=== PATIENT | female | born 1970 | race Caucasian/White ===

== ENCOUNTER → 2017-04-29 | Outpatient (CLI) | payer OTHER ==
[~2017-04-29] MED LIST: CYMBALTA60 MG PO; DHEA 10 MG TAB1 EACH PO; DOXEPIN 25 MG C25 M1 PO; EFFEXOR75 MG PO; GLUCOSAMINE &1 EAC1 PO; HYDROCODON-ACE1 EAC1 PO; LEVOCETIRIZINE D5 MG PO; MULTIVITAMINS1 EAC7 PO; NEURONTIN 300300 M1 PO; NORCO 5-325 TA1 EACH PO; PREMARIN1.25 MG PO; RANITIDINE HCL300 M1 PO; SINGULAIR 10 MG10 MG PO; VITAMIN B-12250 MCG PO; ZINC CHELATE15 MG PO; ZOLOFT100 MG PO
== END | disposition home or self-care (01) ==
LOC: RAD 10:43
DX: M11.262 Other chondrocalcinosis, left knee (principal); M22.42 Chondromalacia patellae, left knee

== ENCOUNTER 2019-04-16 21:11 | Emergency (ER) | payer OTHER ==
[~2019-04-16] VITALS: Ht 170.2 cm; Wt 81.7 kg
[2019-04-16 21:12] VITALS: BP 132/92
[2019-04-16] MEDS ORDERED: IBUPROFEN 800800 M1 PO (22:16)
== END 2019-04-16 22:35 | disposition home or self-care (01) ==
LOC: ER 21:11
DX: S22.31XA Fracture of one rib, right side, initial encounter for closed fracture (principal); S40.011A Contusion of right shoulder, initial encounter; S50.01XA Contusion of right elbow, initial encounter; S60.211A Contusion of right wrist, initial encounter; G43.909 Migraine, unspecified, not intractable, without status migrainosus; F17.210 Nicotine dependence, cigarettes, uncomplicated; Z98.890 Other specified postprocedural states; Z90.710 Acquired absence of both cervix and uterus; Z91.041 Radiographic dye allergy status; W01.0XXA Fall on same level from slipping, tripping and stumbling without subsequent striking against object, initial encounter; Y93.89 Activity, other specified; Y92.89 Other specified places as the place of occurrence of the external cause; Y99.8 Other external cause status

== ENCOUNTER 2019-07-18 12:29 | Emergency (ER) | payer OTHER ==
[~2019-07-18] VITALS: Ht 170.2 cm; Wt 84.8 kg
[~2019-07-18 12:29] MED LIST changes: +IBUPROFEN 800800 M1 PO
[2019-07-18 14:19] LABS: ABSOLUTE NEUTROPHILS 8.2 thou/uL (1.4-8.2); BASOPHILS 0.6 % (0.0-2.0); EOSINOPHILS 0.1 % (0.0-3.0); HEMATOCRIT 42.9 % (37.0-47.0); HEMOGLOBIN 14.4 gm/dL (12.0-15.0); LYMPHOCYTES 17.3 % (24.0-44.0); MCHC 33.5 g/dL (28.0-37.0); MCV 89.6 fL (80.0-100.0); MONOCYTES 2.9 % (1.0-8.0); PLATELET COUNT 249 thou/uL (150-400); POLYS 79.1 % (36.0-66.0); RBC 4.79 mil/uL (4.20-5.00); RDW 13.4 % (10.5-14.5); WBC 10.4 thou/uL (4.0-11.0)
[2019-07-18 14:26] LABS: CALCIUM 10.3 mg/dL (8.5-10.1); POTASSIUM 3.3 mmol/L (3.5-5.1)
[2019-07-18 14:33] LABS: ALBUMIN 4.1 g/dL (3.4-5.0); TOTAL BILIRUBIN 0.6 mg/dL (<0.1-1.0)
[2019-07-18] MEDS ORDERED: FENTANYL1 EACH TOP (16:21)
[2019-07-18] MEDS ORDERED: NORCO 5-325 TA1 EAC1 PO (16:22)
[2019-07-18 16:23] LABS: URINE BILIRUBIN NEGATIVE (Negative); URINE BLOOD 1+ (Negative); URINE CLARITY SL CLOUDY; URINE COLOR YELLOW; URINE GLUCOSE-RANDOM* NEGATIVE (Negative); URINE KETONES 3+ (Negative); URINE LEUKOCYTES-REFLEX NEGATIVE (Negative); URINE NITRITE-REFLEX NEGATIVE (Negative); URINE PROTEIN (DIPSTICK) NEGATIVE (Negative); URINE SPECIFIC GRAVITY 1.015 (1.005-1.035); URINE UROBILINOGEN 0.2 E.U./dl (0.2-1.0)
[2019-07-18 16:25] LABS: URINE REDUCING SUBSTANCE NEGATIVE
[2019-07-18 16:37] LABS: AMORPHOUS PHOSPHATES Many /LPF (None Seen); BACTERIA-REFLEX 1-9 Few /HPF (None Seen); CASTS None Seen /LPF (None Seen); SQUAMOUS >10 Many /LPF (0-3); URINE RBC 0-2 Rare /HPF (0-2); URINE WBC-REFLEX None Seen /HPF (0-5)
[2019-07-18] MEDS ORDERED: PROAIR HFA8.5 GM INH (16:44)
[2019-07-18] MEDS ORDERED: ZOFRAN ODT4 MG PO (16:44)
[2019-07-18 16:51] VITALS: BP 134/65
== END 2019-07-18 16:52 | disposition home or self-care (01) ==
LOC: ER 12:29
PROVIDERS: Physician Assistant
DX: B34.9 Viral infection, unspecified (principal); J06.9 Acute upper respiratory infection, unspecified; E86.0 Dehydration; G43.909 Migraine, unspecified, not intractable, without status migrainosus; Z79.899 Other long term (current) drug therapy

== ENCOUNTER 2020-03-07 11:48 | Emergency (ER) | payer OTHER ==
[~2020-03-07] VITALS: Ht 170.2 cm; Wt 81.7 kg
[~2020-03-07 11:48] MED LIST changes: +FENTANYL1 EACH TOP; +NORCO 5-325 TA1 EAC1 PO; +PROAIR HFA8.5 GM INH; +ZOFRAN ODT4 MG PO
[2020-03-07] MEDS ORDERED: ALPRAZOLAM 0.0.25 M1 PO (12:37)
[2020-03-07] MEDS ORDERED: HYDROCODON-ACE1 EAC7 PO (12:37)
[2020-03-07] MEDS ORDERED: HYDROCHLOROTHIA25 M2 PO (12:38)
[2020-03-07] MEDS ORDERED: VISTARIL 25 MG25 M1 PO (12:39)
[2020-03-07 12:40] LABS: ABSOLUTE NEUTROPHILS 7.3 thou/uL (1.4-8.2); BASOPHILS 0.3 % (0.0-2.0); EOSINOPHILS 0.1 % (0.0-3.0); HEMATOCRIT 43.1 % (37.0-47.0); HEMOGLOBIN 14.4 gm/dL (12.0-15.0); LYMPHOCYTES 19.9 % (24.0-44.0); MCH 29.9 pg (26.0-34.0); MCHC 33.4 g/dL (28.0-37.0); MCV 89.5 fL (80.0-100.0); MONOCYTES 3.4 % (1.0-8.0); PLATELET COUNT 276 thou/uL (150-400); POLYS 76.3 % (36.0-66.0); RBC 4.82 mil/uL (4.20-5.00); RDW 13.4 % (10.5-14.5); WBC 9.6 thou/uL (4.0-11.0)
[2020-03-07 12:49] LABS: CALCIUM 9.9 mg/dL (8.5-10.1); POTASSIUM 3.2 mmol/L (3.5-5.1)
[2020-03-07 12:55] LABS: ALBUMIN 4.2 g/dL (3.4-5.0); DIRECT BILIRUBIN 0.2 mg/dL (<0.1-0.2); TOTAL BILIRUBIN 0.7 mg/dL (0.2-1.0); TOTAL PROTEIN 8.1 g/dL (6.4-8.2)
[2020-03-07] MEDS ORDERED: LEVOTHYROXINE50 MCG PO (13:29)
[2020-03-07] MEDS ORDERED: NEURONTIN 300M300 M2 PO (13:29)
[2020-03-07] MEDS ORDERED: NORVASC5 MG PO (13:30)
[2020-03-07] MEDS ORDERED: ROSUVASTATIN CA10 MG PO (13:30)
[2020-03-07] MEDS ORDERED: PROTONIX40 M2 PO (13:30)
[2020-03-07 13:31] LABS: URINE BILIRUBIN 1+ (Negative); URINE BLOOD 2+ (Negative); URINE CLARITY CLEAR; URINE COLOR YELLOW; URINE GLUCOSE-RANDOM* NEGATIVE (Negative); URINE KETONES 1+ (Negative); URINE LEUKOCYTES-REFLEX NEGATIVE (Negative); URINE NITRITE-REFLEX NEGATIVE (Negative); URINE PROTEIN (DIPSTICK) 1+ (Negative); URINE SPECIFIC GRAVITY 1.025 (1.005-1.035); URINE UROBILINOGEN 0.2 E.U./dl (0.2-1.0)
[2020-03-07 13:40] LABS: CASTS None Seen /LPF (None Seen); MUCUS 4-6 Moderate strn/LPF (None Seen); SQUAMOUS >10 Many /LPF (0-3); URINE RBC 3-10 Few /HPF (0-2); URINE WBC-REFLEX 0-5 Rare /HPF (0-5)
[2020-03-07 13:41] LABS: BACTERIA-REFLEX 1-9 Few /HPF (None Seen); CRYSTALS None Seen /LPF (None Seen)
[2020-03-07 14:02] VITALS: BP 123/72
--- NOTE | 2020-03-07 14:23 | EKG ---
[facility] [place] [address] ELECTROCARDIOGRAM REPORT Name: HARPREET HOUSERCameron Marie Room #: [facility]#: [id number] Admission: 03/07/20 Attend Phys: Discharge: Date of : 66 Report #: [id number] THIS REPORT FOR: cc: FAM - Family physician unknown FAM - Family physician unknown Cory Guerra MD [facility] ~ THIS REPORT FOR: //name// [facility] ED Test Date: 2020-03-07 Test Time: 13:05:34 Pat Name: FELIPE HOUSER Department: Room: Gender: F Overhauler: esheets : 1970 Requested By: Afia Mandel Order Number: [id number] MD: Cory Guerar Measurements Intervals [place] Rate: 58 P: 38 IA: 154 QRS: -1 QRSD: 104 T: 32 QT: 462 QTc: 454 Interpretive Statements Sinus rhythm Baseline wander in lead(s) III,V6 Compared to ECG 09/01/2002 03:08:17 No significant changes Electronically Signed On 03-07-2020 14:23:15 CDT by Cory Guerra [email or web address] <ELECTRONICALLY SIGNED> By: Cory Guerra MD, FACC 03/07/20 1423 1305 04 Cory Guerra MD, FAC /EPI
[2020-03-07] MEDS ORDERED: ZOFRAN ODT4 MG PO (15:49)
== END 2020-03-07 16:15 | disposition home or self-care (01) ==
LOC: ER 11:48
PROVIDERS: Emergency Medicine
DX: E87.2 Acidosis (principal); R11.2 Nausea with vomiting, unspecified; R06.00 Dyspnea, unspecified; R05 Cough; R19.7 Diarrhea, unspecified; Z20.828 Contact with and (suspected) exposure to other viral communicable diseases; G43.909 Migraine, unspecified, not intractable, without status migrainosus; F17.210 Nicotine dependence, cigarettes, uncomplicated; Z90.711 Acquired absence of uterus with remaining cervical stump; Z98.890 Other specified postprocedural states; Z79.899 Other long term (current) drug therapy; Z91.041 Radiographic dye allergy status; Z91.048 Other nonmedicinal substance allergy status

== ENCOUNTER 2020-06-05 17:36 | Inpatient (IN) | payer OTHER ==
[~2020-06-05] VITALS: Ht 170.2 cm; Wt 84.5 kg
[~2020-06-05 17:36] MED LIST changes: +ALPRAZOLAM 0.0.25 M1 PO; +HYDROCHLOROTHIA25 M2 PO; +HYDROCODON-ACE1 EAC7 PO; +LEVOTHYROXINE50 MCG PO; +NEURONTIN 300M300 M2 PO; +NORVASC5 MG PO; +PROTONIX40 M2 PO; +ROSUVASTATIN CA10 MG PO; +VISTARIL 25 MG25 M1 PO
[2020-06-05 17:39] VITALS: BP 152/95
[2020-06-05 18:21] LABS: ABSOLUTE NEUTROPHILS 10.6 thou/uL (1.4-8.2); BASOPHILS 0.5 % (0.0-2.0); EOSINOPHILS 0.1 % (0.0-3.0); HEMATOCRIT 42.7 % (37.0-47.0); HEMOGLOBIN 14.1 gm/dL (12.0-15.0); LYMPHOCYTES 11.5 % (24.0-44.0); MCH 29.8 pg (26.0-34.0); MCHC 33.2 g/dL (28.0-37.0); MCV 89.9 fL (80.0-100.0); PLATELET COUNT 283 thou/uL (150-400); POLYS 85.9 % (36.0-66.0); RBC 4.75 mil/uL (4.20-5.00); RDW 13.5 % (10.5-14.5); WBC 12.4 thou/uL (4.0-11.0)
[2020-06-05] MEDS ORDERED: REXULTI2 MG PO (18:22)
[2020-06-05 18:30] LABS: CALCIUM 10.2 mg/dL (8.5-10.1); CREATININE 0.9 mg/dL (0.6-1.0); POTASSIUM 3.1 mmol/L (3.5-5.1)
[2020-06-05 18:36] LABS: ALBUMIN 4.4 g/dL (3.4-5.0); TOTAL BILIRUBIN 0.3 mg/dL (0.2-1.0); TOTAL PROTEIN 8.1 g/dL (6.4-8.2)
[2020-06-05 19:45] LABS: URINE BILIRUBIN NEGATIVE (Negative); URINE BLOOD 1+ (Negative); URINE CLARITY CLEAR; URINE COLOR YELLOW; URINE GLUCOSE-RANDOM* NEGATIVE (Negative); URINE KETONES TRACE (Negative); URINE LEUKOCYTES-REFLEX NEGATIVE (Negative); URINE NITRITE-REFLEX NEGATIVE (Negative); URINE PROTEIN (DIPSTICK) TRACE (Negative); URINE UROBILINOGEN 0.2 E.U./dl (0.2-1.0)
[2020-06-05 20:06] LABS: MUCUS >6 Heavy strn/LPF (None Seen); SQUAMOUS >10 Many /LPF (0-3)
[2020-06-05 20:07] LABS: CASTS None Seen /LPF (None Seen); URINE WBC-REFLEX 0-5 Rare /HPF (0-5)
[2020-06-05 20:08] LABS: BACTERIA-REFLEX None Seen /HPF (None Seen); CRYSTALS None Seen /LPF (None Seen); URINE RBC 3-10 Few /HPF (0-2)
[2020-06-05 23:18] VITALS: BP 138/75
[2020-06-05 23:29] VITALS: BP 138/75
[2020-06-05 23:46] VITALS: BP 153/90
[2020-06-06 03:10] VITALS: BP 122/71
[2020-06-06 05:29] LABS: HEMOGLOBIN 12.8 gm/dL (12.0-15.0); MCH 29.6 pg (26.0-34.0); MCHC 32.9 g/dL (28.0-37.0); RBC 4.34 mil/uL (4.20-5.00); RDW 13.4 % (10.5-14.5); WBC 12.3 thou/uL (4.0-11.0)
[2020-06-06 05:38] LABS: CALCIUM 9.1 mg/dL (8.5-10.1); CREATININE 0.8 mg/dL (0.6-1.0); POTASSIUM 3.1 mmol/L (3.5-5.1)
--- NOTE | 2020-06-06 06:59 | NUR ---
PT ARRIVED VIA ER ON CART. COVID PCR WAS NEGATIVE, ALL APPROPRIATE PARTIES NOTIFIED. PT STILL HAVING N/V AND GASTRIC PAIN. IV PAIN & NAUSEA MEDICATION GIVEN WITH GOOD RESULTS. IVF GTT AT 125. ADMISSION COMPLETED, MED REC DONE, AND CARE PLAN IN PLACE.
[2020-06-06 07:25] VITALS: BP 125/97
--- NOTE | 2020-06-06 14:30 | NUR ---
PATIENT TRANSFERED TO AT THIS TIME. SHE IS COVID NEGATIVE AND NO HAPPY BEING UP ON THIS FLOOR. REPORT CALLED. WILL CONT WITH PLAN OF CARE.
[2020-06-06 15:00] VITALS: BP 142/74
[2020-06-06 15:20] VITALS: BP 142/74
[2020-06-06 19:38] VITALS: BP 134/69
[2020-06-06 21:57] VITALS: BP 134/69
--- NOTE | 2020-06-07 03:31 | NUR ---
PT AOX4. PT REPORTS 8/10 PAIN IN ABDOMEN. PT RECEIVING PRN IV FENTANYL Q4HR. PT REPORTS SOB WITH EXERTION WHILE ON ROOM AIR, OXYGEN OFFERED, PT REFUSING O2 SUPPLEMENTATION, NASAL CANNULA IN ROOM AVAILABLE FOR USE. PT AMBULATING INDEPENDENTLY IN ROOM AND TO BATHROOM. PT REMAINS NPO. PT REPORTS NAUSEA WITH EMESIS. PT RECEIVING PRN IV ZOFRAN Q6HR, PRN IV COMPAZINE Q6HR WITH PRN NH PHENERGAN Q6HR AVAILABLE. PT CONTINUES TO REPORTS PAIN AFTER 4 OUT OF 4 DOSES OF FENTANYL GIVEN. ONCALL BILL CLERK NOTIFIED, RECEIVED ORDERS FOR PRN IV FENTANYL Q4HR X4 DOSES. FREQUENT REPOSITIONING ENCOURAGED WHILE IN BED, PT NOTED TO SHIFT INDEPENDENTLY WHILE IN BED. PT ENCOURAGED TO NOTIFY STAFF FOR ALL NEEDS, CALL LIGHT WITHIN REACH, BED LOCKED IN LOWEST POSITION, FREQUENT MONITORING WILL CONTINUE.
[2020-06-07 03:40] VITALS: BP 116/71
[2020-06-07 07:30] VITALS: BP 141/74
[2020-06-07 11:30] VITALS: BP 149/93
[2020-06-07] MEDS ORDERED: ACETAMINOPHEN325 M1 PO (13:14)
[2020-06-07] MEDS ORDERED: ZOFRAN ODT4 MG PO (13:14)
[2020-06-07] MEDS ORDERED: PROTONIX40 M2 PO (13:14)
--- NOTE | 2020-06-07 13:54 | NUR ---
RECEIVED PT'S CARE AROUND 0730; PT. ON BED; ALERT; DURING AM ASSESSMENT AOX4; C/O PAIN OVER BLE; PRN IV MEDICATION GIVEN EARLIER BY NIGHT RN; C/O NAUSEA; AM MEDICATIONS GIVEN; NPO; GONE FOR PROCEDURE AROUND 0900; PER REPORT NO BLEDDING; DURING ROUNDING DR. COLEY NOTIFIED ABOUT MARIJUANA USE DAILY AND EMAR MEDICATIONS; ORDERS ON PLACED; BACK FROM PROCEDURE; RESTING ON BED; NO C/O PAIN; VS WNL; AROUND 1100 PT. CALL REQUESTING TO KNOW WHEN SHE WILL GO HOME; REMAINED ABOUT POC; ON CLEAR LIQUID DIET; EDUCATED ABOUT HAVING SMALL SIPS AND BITES IN ORDER TO AVOID VOMITING; NO ANSWER BACK; AFTER 30 MINS PT. CALL BACK TO NURSE ASKING WHEN SHE WILL GO HOME; SHIPPING WEIGHER ON PT. ROOM; PT. UPSET; ST. "WHEN I AM GOING HOME"; REMAINED ABOUT POC; "ST. CAN I GO TO SMOKE"; EDUCATED ABOUT HOSPITAL POLOCY; PT. UPSET; IRRITABLE; ST. "CAN YOU LEAST GIVE A NICOTINE PATCH I HAVE BEING HERE FOR FOUR DAYS AND I HAVEN'T GOTTEN NOTHING"; ASKED HOW MANY CIGARRETES SMOKE FOR DAY; ST. "ONE PACKET"; DR. COLEY NOTIFIED; PT. REQUESTED TO GO HOME; D/C ORDERS ON PLACED; EDUCATED ABOUT D/C PROCESS; PT. UPSET DEMANDING IV OUT; ASSESSMENT CHARGED; FOLLOWING POC; WORKING ON D/C PAPERS;
[2020-06-07 14:12] VITALS: BP 149/93
[2020-06-07 14:14] VITALS: BP 149/93
--- NOTE | 2020-06-10 17:06 | PATH ---
[facility] [address] [place] [address] PATHOLOGY RPT PROCEDURE Name: FELIPE GUILLEN Frank Room #: 206-P [facility] IN .R.#: [id number] Admission: 06/05/20 Date of : 66 Discharge: 06/07/20 Report #: [id number] Path Case #: [id number] [facility] Accession Number: [id number] . 01 Material submitted: . gastrointestinal site - BX OF RANDOM GASTRIC . 02 Diagnosis: Gastric mucosa, random gastric, endoscopic biopsy: - Mild reactive gastropathy. - Negative for intestinal metaplasia or atrophy. - Negative for Helicobacter pylori (properly controlled immunohistochemical stain performed). (IUV:pit 06/10/2020) QTP 06/10/2020 1325 Local . 02 Electronically signed: . Darcy Kuo MD, Pathologist NPI- [id number] . 01 Gross description: . The specimen is received in formalin, labeled "Felipe Guillen, BX of random gastric" and consists of 4 fragments of pink-walter tissue measuring between 0.4 x 0.2 cm and 0.5 x 0.3 cm which are entirely submitted in A1. (SDY; 06/09/2020) SYU/SYU 06/09/2020 1419 Local . 02 Pathologist provided ICD-10: K31.9 . 02 CPT . 824136, G75274 Specimen Comment: A courtesy copy of this report has been sent to [phone] Specimen Comment: [phone], Specimen Comment: Report sent to ,DR PANIAGUA / DR COLEY Performed at: [address], [place] [id number] MD Raciel Holbrook MD Phone: [phone] Performed at: [address] [id number] MD Darcy Kuo MD Phone: [phone]
== END 2020-06-07 14:32 | disposition home or self-care (01) | DRG 392 ==
LOC: ER 17:36 → 2N 21:45 → 3W 21:45 → EROBS 21:45 → 3W 23:33 → 2N 06-06 14:33
PROVIDERS: Emergency Medicine; Nurse Practitioner Family; ADMIT Internal Medicine; ATTEND Internal Medicine
PROC: 0DB68ZX Excision of Stomach, Via Natural or Artificial Opening Endoscopic, Diagnostic (ICD-10-PCS; principal; 2020-06-07)
DX: K29.70 Gastritis, unspecified, without bleeding (principal); G43.909 Migraine, unspecified, not intractable, without status migrainosus; E87.6 Hypokalemia; I10 Essential (primary) hypertension; E78.5 Hyperlipidemia, unspecified; F41.9 Anxiety disorder, unspecified; F32.9 Major depressive disorder, single episode, unspecified; E03.9 Hypothyroidism, unspecified; F17.210 Nicotine dependence, cigarettes, uncomplicated; K44.9 Diaphragmatic hernia without obstruction or gangrene; F12.10 Cannabis abuse, uncomplicated; G62.9 Polyneuropathy, unspecified; N20.0 Calculus of kidney; Z20.822 Contact with and (suspected) exposure to COVID-19; Z90.710 Acquired absence of both cervix and uterus; Z98.891 History of uterine scar from previous surgery; Z79.899 Other long term (current) drug therapy; Z91.041 Radiographic dye allergy status; Z91.09 Other allergy status, other than to drugs and biological substances
CPT/HCPCS: 10080; 10194; 62110; 62900; 70005

== ENCOUNTER 2020-06-08 01:41 | Inpatient (IN) | payer OTHER ==
[~2020-06-08] VITALS: Ht 170.2 cm; Wt 83.5 kg
[2020-06-08] VITALS (7 sets, daily range): BP systolic 123–174; BP diastolic 77–93
[~2020-06-08 01:41] MED LIST changes: +ACETAMINOPHEN325 M1 PO; +REXULTI2 MG PO
[2020-06-08 02:41] LABS: ABSOLUTE NEUTROPHILS 7.9 thou/uL (1.4-8.2); BASOPHILS 0.5 % (0.0-2.0); EOSINOPHILS 0.1 % (0.0-3.0); HEMATOCRIT 42.3 % (37.0-47.0); LYMPHOCYTES 24.6 % (24.0-44.0); MCH 29.6 pg (26.0-34.0); MCHC 33.1 g/dL (28.0-37.0); MCV 89.5 fL (80.0-100.0); MONOCYTES 6.2 % (1.0-8.0); PLATELET COUNT 224 thou/uL (150-400); POLYS 68.6 % (36.0-66.0); RBC 4.72 mil/uL (4.20-5.00); RDW 13.5 % (10.5-14.5); WBC 11.4 thou/uL (4.0-11.0)
[2020-06-08 02:49] LABS: ALBUMIN 4.2 g/dL (3.4-5.0); CALCIUM 9.4 mg/dL (8.5-10.1); CREATININE 0.8 mg/dL (0.6-1.0); TOTAL BILIRUBIN 0.8 mg/dL (0.2-1.0); TOTAL PROTEIN 7.7 g/dL (6.4-8.2)
[2020-06-08 02:52] LABS: POTASSIUM 2.6 mmol/L (3.5-5.1)
--- NOTE | 2020-06-08 04:31 | NUR ---
PT ADMITTED FROM ED. PT CAME FROM HOME, PT DISCHARGED AMA 06/06/20 PER ED. PT PRESENTS WITH LOW POTASSIUM AND HYPEREMESIS R/T PROLONGED HISTORY OF SMOKING MARIJUANA. PT IS A0X4, STEADY GAIT, CALM, PLEASANT. PT REQUESTING ICE CHIPS, DIET IS CLEAR LIQUID. PT IDENTIFIED HER HER DESIGNATED CONTACT.
--- NOTE | 2020-06-08 12:10 | NUR ---
ASSUMED PT CARE THIS AM. PT VSS, A&OX4. PT AMBULATORY TO THE BATHROOM. CALLS APPROPRIATELY WHEN NEEDED. REPORTED NAUSEA, RESPONDED WELL TO NAUSEA MEDS GIVEN. TOLERATED PO MEDS WELL. IV POTASSIUM INFUSING WITH MAINTENANCE FLUIDS. TOLERATING DIET WELL. NO VOMITING NOTED AT THE CURRENT TIME. ON TELE, ON ROOM AIR.
[2020-06-09 04:40] VITALS: BP 132/83
[2020-06-09 04:49] LABS: HEMATOCRIT 41.3 % (37.0-47.0); HEMOGLOBIN 13.8 gm/dL (12.0-15.0); MCH 29.8 pg (26.0-34.0); MCHC 33.3 g/dL (28.0-37.0); MCV 89.4 fL (80.0-100.0); RBC 4.62 mil/uL (4.20-5.00); RDW 13.4 % (10.5-14.5); WBC 7.8 thou/uL (4.0-11.0)
[2020-06-09 04:59] LABS: CALCIUM 9.1 mg/dL (8.5-10.1); CREATININE 0.9 mg/dL (0.6-1.0); POTASSIUM 3.6 mmol/L (3.5-5.1)
--- NOTE | 2020-06-09 07:39 | NUR ---
DENIES NAUSEA,NO VOMITTING,STAYED ON CLEAR LIQUID DIET BUT WANTS TO ADVANCE HER DIET TODAY.PT IS HOPING TO GO HOME TODAY.POC CONTINUED.
--- NOTE | 2020-06-09 07:44 | EKG ---
[address] [place] [employer] [address] ELECTROCARDIOGRAM REPORT Name: FELIPE HOUSER Room #: 458-P ADM IN M.R.#: [id number] Admission: 06/08/20 Attend Phys: Letty Flores MD Discharge: Date of : 66 Report #: [id number] [facility] ED Test Date: 2020-06-08 Test Time: 03:08:36 Pat Name: FELIPE HOUSER Department: Room: 458 Gender: F Ct Scan Special Procedures Technologist: SANDRA : 1970 Requested By: Haim Godwin Order Number: [id number] MD: Cory Guerra Measurements Intervals [place] Rate: 68 P: 231 HI: 54 QRS: -13 QRSD: 118 T: 5 QT: 436 QTc: 464 Interpretive Statements Sinus or ectopic atrial rhythm Short HI interval Nonspecific intraventricular conduction delay Borderline T abnormalities, inferior leads Compared to ECG 03/07/2020 13:05:34 Ectopic atrial rhythm now present Short HI interval now present Intraventricular conduction delay now present T-wave abnormality now present Sinus rhythm no longer present Electronically Signed On 06-09-2020 7:44:01 [employer]BRAS[employer] WHEEL [employer]OLDER by Cory Guerra [email or web address] <ELECTRONICALLY SIGNED> By: Cory Guerra MD, FAC 06/09/20 0744 0308 Cory Guerra MD, [facility] /EPI
[2020-06-09 08:05] VITALS: BP 133/81
--- NOTE | 2020-06-09 10:54 | NUR ---
ASSUMED PT CARE THIS AM. PT VSS, A&OX4. PT HAS NO COMPLAINTS OF PAIN, NAUSEA, OR VOMITING. PT AMBULATORY TO THE BATHROOM. CALLS APPROPRIATELY WHEN NEEDED. ON TELE. ON ROOM AIR. TOLERATING DIET WELL, HYDRATION ENCOURAGED.
[2020-06-09 11:58] VITALS: BP 132/83
--- NOTE | 2020-06-09 13:45 | NUR ---
PT ADMITTED RELATED TO NAUSEA EMESIS. CM REVIEWED CHART AND SPOKE WITH CARE TEAM. CM SPOKE WITH PT OVER THE PHONE THIS AM. PT INDICATED THAT SHE LIVES IN A HOUSE WITH HER SPOUSE WITH A NUMBER OF STEPS TO ENTER AND NONE INSIDE. PT INDICATED SHE HAD USED A CANE TO ASSIST WITH MOBILITY AT TIMES DELIMER. PT INDICATED NO HH OR OP THERAPY IN THE PAST. PT'S PCP IS DR. LY PANIAGUA. PT INDICATED SHE WAS FEELING NUCH BETTER AND WAS INTERESTED IN DISCHARGING HOME THIS DAY SOON POSSIBLE. CARE TEAM INDICATED PT IS MEDICALLY STABLE TO DC HOME THIS DAY TO SELF CARE. NO OTHER CM INTERVENTION INDICATED. CASE CLOSED.
== END 2020-06-09 14:00 | disposition home or self-care (01) | DRG 641 ==
LOC: ER 01:41 → EROBS 03:19 → 4W 03:19
PROVIDERS: Emergency Medicine; Nurse Practitioner Family; ADMIT Internal Medicine; ATTEND Internal Medicine
DX: E87.6 Hypokalemia (principal); R11.2 Nausea with vomiting, unspecified; G43.909 Migraine, unspecified, not intractable, without status migrainosus; F32.9 Major depressive disorder, single episode, unspecified; F41.9 Anxiety disorder, unspecified; I10 Essential (primary) hypertension; F17.210 Nicotine dependence, cigarettes, uncomplicated; E03.9 Hypothyroidism, unspecified; E78.5 Hyperlipidemia, unspecified; T40.7X5A Adverse effect of cannabis (derivatives), initial encounter; K21.9 Gastro-esophageal reflux disease without esophagitis; K44.9 Diaphragmatic hernia without obstruction or gangrene; Z90.710 Acquired absence of both cervix and uterus; Z79.899 Other long term (current) drug therapy; Z91.041 Radiographic dye allergy status; Y92.89 Other specified places as the place of occurrence of the external cause
CPT/HCPCS: 10045